=== PATIENT | female | born 1970 | race Hispanic/Latino ===

== ENCOUNTER 2019-03-03 | Emergency (ER) | payer SELFPAY ==
[~2019-03-03] MED LIST: FERR SULFATE325 MG PO; ORAL CONTRACEPTIVE
[2019-03-03 03:38] LABS: IMMATURE GRANULOCYTES 0.5 % (0.0-5.0); MEAN CORPUSCULAR HGB 27.8 pG CALC (26.0-32.0); MEAN CORPUSCULAR HGB CONC 32.5 g/L CALC (32.0-36.0); NEUT# 8.94 thou/uL (2.00-7.15); RED BLOOD COUNT 4.46 mill/uL (4.20-5.60); RED CELL DISTRI WIDTH 14.2 % (11.5-15.5)
[2019-03-03 03:39] LABS: URINE BILIRUBIN - DIPSTICK NEGATIVE (NEGATIVE); URINE BLOOD DIPSTICK NEGATIVE (NEGATIVE); URINE COLOR YELLOW; URINE GLUCOSE - DIPSTICK NEGATIVE (NEGATIVE); URINE KETONE NEGATIVE (NEGATIVE); URINE LEUK ESTERASE NEGATIVE (NEGATIVE); URINE NITRITE - DIPSTICK NEGATIVE (Negative); URINE PROTEIN - DIPSTICK NEGATIVE (NEG-TRACE); URINE UROBILINOGEN - DIPSTICK 0.2 E.U./dL (0.2)
[2019-03-03 03:49] LABS: HEMATOCRIT 38.1 % (37.0-47.0); HEMOGLOBIN 12.4 g/dl (12.0-16.0); MEAN CELL VOLUME 85.4 fL CALC (80.0-100.0)
[2019-03-03 03:54] LABS: ALBUMIN 3.7 g/dL (3.2-5.0); ALKALINE PHOSPHATASE 91 u/l (38-126); AMYLASE 47 u/l (30-110); ANION GAP 11 (6-22 (CALC)); BILIRUBIN, TOTAL 0.2 mg/dL (0.0-1.4); BUN 14 mg/dL (7-17); BUN/CREATININE RATIO 25 (12-20 (CALC)); CARBON DIOXIDE 25 mmol/l (22-30); CHLORIDE 107 mmol/l (95-108); CREATININE 0.5 mg/dL (0.5-1.0); GFR > 60 ML/MIN (>=60 (CALC)); GFR FOR AFR.AMER. > 60 ML/MIN (>=60 (CALC)); LIPASE 114 u/l (23-300); POTASSIUM 3.4 mmol/l (3.5-5.1); SGOT/AST 14 u/l (14-36); SODIUM 139 mmol/l (137-146); TOTAL PROTEIN 7.5 g/dL (6.3-8.2)
[2019-03-03 04:05] LABS: MYOGLOBIN 30 ng/mL (0 - 62)
[2019-03-03] MEDS ORDERED: ONDANSETRON4 MG PO (05:54)
[2019-03-03] MEDS ORDERED: ULTRAM50 M1 PO (05:54)
[2019-03-03] MEDS ORDERED: AMOXICILLIN500 MG PO (05:54)
== END 2019-03-03 06:12 | disposition home or self-care (01) | DRG 153 ==
PROVIDERS: Emergency Medicine
DX: J02.0 Streptococcal pharyngitis (principal); K52.9 Noninfective gastroenteritis and colitis, unspecified; D28.2 Benign neoplasm of uterine tubes and ligaments; F17.210 Nicotine dependence, cigarettes, uncomplicated